=== PATIENT | male | born 1950 | race Caucasian/White ===

== ENCOUNTER → 2019-08-06 | Outpatient (CLI) | payer MEDICARE, OTHER ==
[~2019-08-06] MED LIST: ACHD5005 PO; ASPI-586 PO; CEFD300C3 PO; CHOL500044 PO; DOXY100T2 PO; LORA10TA7 PO; MULT-974 PO; OMG1KC PO; RANI-514 PO
[2019-08-06 07:47] LABS: CALCIUM 9.7 MG/DL (8.5-10.1); CREATININE SERUM 1.73 MG/DL (0.60-1.30); POTASSIUM 4.5 MMOL/L (3.6-5.0)
== END ==
LOC: LAB 07:20
PROVIDERS: ATTEND Family Medicine
DX: N28.9 Disorder of kidney and ureter, unspecified (principal)
CPT/HCPCS: 36415; 80048

== ENCOUNTER → 2019-08-19 | Outpatient (CLI) | payer MEDICARE, OTHER ==
[2019-08-19 07:49] LABS: CALCIUM 9.5 MG/DL (8.5-10.1); CREATININE SERUM 1.62 MG/DL (0.60-1.30); POTASSIUM 4.5 MMOL/L (3.6-5.0)
== END ==
LOC: LAB 07:14
PROVIDERS: ATTEND Family Medicine
DX: N28.9 Disorder of kidney and ureter, unspecified (principal)
CPT/HCPCS: 36415; 80048

== ENCOUNTER 2019-09-02 06:58 | Outpatient (RCR) | payer MEDICARE, OTHER ==
[~2019-09-02 06:58] MED LIST changes: -RANI-514 PO; +RANI-607 PO
[2019-09-02 07:27] LABS: CALCIUM 9.4 MG/DL (8.5-10.1); CREATININE SERUM 1.56 MG/DL (0.60-1.30); POTASSIUM 4.3 MMOL/L (3.6-5.0)
== END 2019-12-01 | disposition home or self-care (01) ==
LOC: LAB 06:58 → EDSTATUS 07:00
PROVIDERS: ATTEND Family Medicine
DX: N28.9 Disorder of kidney and ureter, unspecified (principal)
CPT/HCPCS: 36415; 80048

== ENCOUNTER → 2019-09-17 | Outpatient (CLI) | payer MEDICARE, OTHER ==
[~2019-09-17] MED LIST changes: +RANI-514 PO; -RANI-607 PO
[2019-09-17 07:46] LABS: CALCIUM 9.3 MG/DL (8.5-10.1); CREATININE SERUM 1.57 MG/DL (0.60-1.30); POTASSIUM 4.5 MMOL/L (3.6-5.0)
== END ==
LOC: LAB 06:55
PROVIDERS: ATTEND Family Medicine
DX: R94.4 Abnormal results of kidney function studies (principal)
CPT/HCPCS: 36415; 80048

== ENCOUNTER → 2019-09-30 | Outpatient (CLI) | payer MEDICARE, OTHER ==
[2019-09-30 07:51] LABS: CALCIUM 9.4 MG/DL (8.5-10.1); CREATININE SERUM 1.65 MG/DL (0.60-1.30); POTASSIUM 4.5 MMOL/L (3.6-5.0)
== END ==
LOC: LAB 07:28
PROVIDERS: ATTEND Family Medicine
DX: R94.4 Abnormal results of kidney function studies (principal)
CPT/HCPCS: 36415; 80048

== ENCOUNTER → 2019-10-07 | Outpatient (CLI) | payer MEDICARE, OTHER ==
--- NOTE | 2019-10-07 15:15 | Diagnostic Imaging Report ---
PROCEDURE: US Renal Bilateral. TECHNIQUE: Multiple real-time grayscale images were obtained over the kidneys in various projections bilaterally. INDICATION: Urinary retention. History of diabetes. COMPARISON: None. FINDINGS: Right: The right kidney measures 11.4 cm in length. Renal cortical thickness and echogenicity are within normal limits. There is no evidence of calculi, solid focal mass or hydronephrosis. No perinephric fluid collections are identified. Left: The left kidney measures 12.6 cm in length. Renal cortical thickness and echogenicity are within normal limits. There is moderate left-sided hydroureteronephrosis with dilation of the renal calyces. No evidence of obstructing renal calculi or suspicious renal mass is seen on the left. There is no abdominal ascites. Views of the pelvis demonstrate a markedly distended urinary bladder with a volume of 2430 mL. Both ureteral jets are visualized. No large intraluminal filling defect or calculi are identified. Numerous hepatic cysts are incidentally noted. IMPRESSION: 1. Moderate left-sided hydroureteronephrosis. No obstructing renal calculi are seen. The left ureteral jet is seen. 2. Moderately distended urinary bladder. Postvoid volumes were not obtained on this exam to evaluate for urinary retention. 3. Incidentally visualized numerous hepatic cysts. If indicated, further evaluation with liver protocol CT or MRI of the abdomen and pelvis may be considered. Dictated by: Dictated on workstation # [id number]
== END ==
LOC: RAD 12:59
PROVIDERS: ATTEND Family Medicine
DX: N13.30 Unspecified hydronephrosis (principal); E11.9 Type 2 diabetes mellitus without complications; N32.89 Other specified disorders of bladder; K76.89 Other specified diseases of liver; N28.9 Disorder of kidney and ureter, unspecified; R33.9 Retention of urine, unspecified
CPT/HCPCS: 76770

== ENCOUNTER 2019-10-08 08:59 | Emergency (ER) | payer MEDICARE, OTHER ==
[~2019-10-08] VITALS: Ht 187.9 cm; Wt 91.7 kg
[2019-10-08 09:35] LABS: BILIRUBIN,URINE NEGATIVE (NEGATIVE); CLARITY,URINE CLEAR; COLOR,URINE YELLOW; GLUCOSE, URINE (UA) NEGATIVE (NEGATIVE); KETONES,URINE NEGATIVE (NEGATIVE); LEUKOCYTE ESTERASE ,URINE NEGATIVE (NEGATIVE); NITRITE,URINE NEGATIVE (NEGATIVE); PROTEIN,URINE NEGATIVE (NEGATIVE)
[2019-10-08] MEDS ORDERED: LIDOCAINE UROJET 2% GEL 10 ML PKG ONE (09:35)
[2019-10-08 09:40] LABS: BASOPHILS % (AUTO) 0 % (0-10); EOSINOPHILS # (AUTO) 0.2 10^3/uL (0.0-0.3); EOSINOPHILS % (AUTO) 2 % (0-10); HEMATOCRIT 40 % (40-54); HEMOGLOBIN 13.8 G/DL (13.3-17.7); LYMPHOCYTES # (AUTO) 1.6 X 10^3 (1.0-4.0); LYMPHOCYTES % (AUTO) 25 % (12-44); MEAN CORPUSCULAR HEMOGLOBIN 34 PG (25-34); MEAN CORPUSCULAR HGB CONC 34 G/DL (32-36); MEAN CORPUSCULAR VOLUME 98 FL (80-99); MEAN PLATELET VOLUME 9.6 FL (7.4-10.4); MONOCYTES # (AUTO) 0.7 X 10^3 (0.0-1.0); MONOCYTES % (AUTO) 11 % (0-12); NEUTROPHILS # (AUTO) 3.9 X 10^3 (1.8-7.8); NEUTROPHILS % (AUTO) 62 % (42-75); PLATELET COUNT 159 10^3/uL (130-400); RED CELL DISTRIBUTION WIDTH 13.5 % (10.0-14.5); WHITE BLOOD COUNT 6.4 10^3/uL (4.3-11.0)
[2019-10-08 09:43] LABS: BACTERIA,URINE TRACE /HPF
[2019-10-08 09:59] LABS: ALBUMIN 4.3 GM/DL (3.2-4.5); BILIRUBIN,TOTAL 1.6 MG/DL (0.1-1.0); CALCIUM 9.5 MG/DL (8.5-10.1); CREATININE SERUM 1.66 MG/DL (0.60-1.30); POTASSIUM 4.5 MMOL/L (3.6-5.0)
--- NOTE | 2019-10-08 10:54 | Diagnostic Imaging Report ---
EXAMINATION: CT Abdomen Pelvis without contrast. TECHNIQUE: Multiple contiguous axial images were obtained through the abdomen and pelvis without the use of intravenous contrast. All CT scans use one or more of the following dose optimizing techniques: automated exposure control, MA and/or KvP adjustment based on a patient size and exam type, or iterative reconstruction. HISTORY: Hydronephrosis. COMPARISON: None available. FINDINGS: Limited views of the lower thorax are unremarkable. There are extensive cysts throughout the liver. Many of these are peripherally calcified. There is no biliary ductal dilation. Calcification in the region of the gallbladder fossa is indeterminate, either the gallbladder is filled with stones or a sequela of prior cholecystectomy, possibly a dropped stone. Pancreas is normal. Spleen is normal. Adrenal glands are normal. There is mild left hydronephrosis with transition at the ureteropelvic junction likely representing a ureteropelvic junction obstruction. No suspicious renal lesions are seen. No right-sided hydronephrosis. Urinary bladder is distended. A Story catheter is present. Prostate is enlarged. There are no dilated loops of large or small bowel. No obstruction or inflammation. No free fluid or air. No abdominal or pelvic lymphadenopathy. Aorta is normal in caliber without aneurysm. There are no suspicious osseous lesions. IMPRESSION: 1. Left-sided hydronephrosis is mild and likely related to ureteropelvic junction obstruction without stone seen. 2. Extensive polycystic liver disease. Dictated by: Dictated on workstation # [id number]
--- NOTE | 2019-10-08 10:58 | ED GU-Female ---
General Chief Complaint: - Urinary Stated Complaint: SENT BY DR ROTH FOR SONOGRAM Source: patient Exam Limitations: no limitations History of Present Illness Date Seen by Provider: Oct 08, 2019 Time Seen by Provider: 10:15 Initial Comments Here with report of bladder distention. Patient follows with Dr. Roth in Dr. Roth called me this morning related to this patient. Apparently he had ultrasound yesterday which showed significant bladder distention and hydronephrosis. Dr. Rvias was worried about urinary retention and asked that he be evaluated with post void residual and catheter if indicated. Also requested noncontrast CT scan. Patient arrives and is in no distress and has no complaints. He does report that he has had recent history of elevated creatinine that is new over the last several months. He does not feel fullness or pain in the abdomen. Timing/Duration: constant, yesterday Severity/Quality: mild Location: other (no pain) Radiation: none Activities at Onset: none Prior Genitourinary Problems: none Associated Symptoms: No abdominal pain, No dysuria, No fever/chills, No loss of bladder control, No lower back pain, No nausea/vomiting, No urinary frequency Allergies and Home Medications Allergies Coded Allergies: No Known Drug Allergies (Unverified , 05/06/18) Home Medications Cefdinir 300 Mg Capsule, 300 MG PO BID, (Reported) Cholecalciferol (Vitamin D3) 5,000 Unit Tablet, 5,000 UNIT PO DAILY, (Reported) Doxycycline Hyclate 100 Mg Tablet, 100 MG PO BID, (Reported) Hydrocodone Bit/Acetaminophen 1 Tab Tab, 1-2 TAB PO 4-6HR PRN for PAIN Prescribed by: ZEINA HERNANDEZ on 05/06/18 1158 Loratadine 10 Mg Tablet, 10 MG PO DAILY, (Reported) Ranitidine HCl 75 Mg Tablet, 75 MG PO DAILY, (Reported) Patient Home Medication List Home Medication List Reviewed: Yes Review of Systems Review of Systems Constitutional: see HPI Respiratory: no symptoms reported Cardiovascular: no symptoms reported Gastrointestinal: no symptoms reported Genitourinary: see HPI Musculoskeletal: no symptoms reported Skin: no symptoms reported All Other Systemes Reviewed Negative Unless Noted: Yes Past Aslisrc-Cdrmxq-Xqtnen Hx Past Med/Social Hx: Reviewed Nursing Past Med/Soc Hx Patient Social History Alcohol Use: Denies Use Recreational Drug Use: No Smoking Status: Never a Smoker Former Smoker, Quit: Nov 11, 1990 Recent Foreign Travel: No Contact w/Someone Who Travel: No Recent Hopitalizations: No Seasonal Allergies Seasonal Allergies: Yes Past Medical History Surgeries: Yes (sebaceous cyst on his back) Respiratory: No Cardiac: No Neurological: No Reproductive Disorders: No Endocrine: Yes Diabetes, Non-Insulin dep Psychosocial: No Recent Skin Changes Family Medical History Reviewed Nursing Family Hx No Pertinent Family Hx Physical Exam Vital Signs Vital Signs - First Documented 10/08/19 09:18 Temp 36.4 Pulse 79 Resp 15 B/P (MAP) 159/92 (114) Pulse Ox 99 O2 Delivery Room Air Capillary Refill : Height, Weight, BMI Height: 6'2.00" Weight: 224lbs. 8.0oz. 101.551730sr; 28.8 BMI Method: General Appearance: WD/WN, no apparent distress Neck: full range of motion, supple Cardiovascular: regular rate, rhythm, no murmur Respiratory: lungs clear, normal breath sounds Gastrointestinal: non tender, soft Back: normal inspection, no CVA tenderness, no vertebral tenderness Extremities: non-tender, normal inspection Neurologic/Psychiatric: alert, oriented x 3 Skin: normal color, warm/dry Progress/Results/Core Measures Suspected Sepsis SIRS Temperature: Pulse: Respiratory Rate: Laboratory Tests 10/08/19 09:34: White Blood Count 6.4 Blood Pressure / Mean: Laboratory Tests 10/08/19 09:34: Creatinine 1.66H, Platelet Count 159, Total Bilirubin 1.6H Results/Orders Lab Results Laboratory Tests Test 10/08/19 09:20 10/08/19 09:34 Range/Units Urine Color YELLOW Urine Clarity CLEAR Urine pH 5.0 5-9 Urine Specific [place] >=1.030 1.016-1.022 Urine Protein NEGATIVE NEGATIVE Urine Glucose (UA) NEGATIVE NEGATIVE Urine Ketones NEGATIVE NEGATIVE Urine Nitrite NEGATIVE NEGATIVE Urine Bilirubin NEGATIVE NEGATIVE Urine Urobilinogen 0.2 < = 1.0 MG/DL Urine Leukocyte Esterase NEGATIVE NEGATIVE Urine RBC (Auto) NEGATIVE NEGATIVE Urine RBC NONE /HPF Urine WBC NONE /HPF Urine Crystals NONE /LPF Urine Bacteria TRACE /HPF Urine Casts NONE /LPF Urine Mucus NEGATIVE /LPF Urine Culture Indicated NO White Blood Count 6.4 4.3-11.0 10^3/uL Red Blood Count 4.11 L 4.35-5.85 10^6/uL Hemoglobin 13.8 13.3-17.7 G/DL Hematocrit 40 40-54 % Mean Corpuscular Volume 98 80-99 FL Mean Corpuscular Hemoglobin 34 25-34 PG Mean Corpuscular Hemoglobin Concent 34 32-36 G/DL Red Cell Distribution Width 13.5 10.0-14.5 % Platelet Count 159 130-400 10^3/uL Mean Platelet Volume 9.6 7.4-10.4 FL Neutrophils (%) (Auto) 62 42-75 % Lymphocytes (%) (Auto) 25 12-44 % Monocytes (%) (Auto) 11 0-12 % Eosinophils (%) (Auto) 2 0-10 % Basophils (%) (Auto) 0 0-10 % Neutrophils # (Auto) 3.9 1.8-7.8 X 10^3 Lymphocytes # (Auto) 1.6 1.0-4.0 X 10^3 Monocytes # (Auto) 0.7 0.0-1.0 X 10^3 Eosinophils # (Auto) 0.2 0.0-0.3 10^3/uL Basophils # (Auto) 0.0 0.0-0.1 10^3/uL Sodium Level 142 135-145 MMOL/L Potassium Level 4.5 3.6-5.0 MMOL/L Chloride Level 108 H 98-107 MMOL/L Carbon Dioxide Level 23 21-32 MMOL/L Anion Gap 11 5-14 MMOL/L Blood Urea Nitrogen 33 H 7-18 MG/DL Creatinine 1.66 H 0.60-1.30 MG/DL Estimat Glomerular Filtration Rate 42 BUN/Creatinine Ratio 20 Glucose Level 116 H 70-105 MG/DL Calcium Level 9.5 8.5-10.1 MG/DL Corrected Calcium 9.3 8.5-10.1 MG/DL Total Bilirubin 1.6 H 0.1-1.0 MG/DL Aspartate Amino Transf (AST/SGOT) 32 5-34 U/L Alanine Aminotransferase (ALT/SGPT) 28 0-55 U/L Alkaline Phosphatase 51 40-136 U/L Total Protein 7.0 6.4-8.2 GM/DL Albumin 4.3 3.2-4.5 GM/DL My Orders Orders - DEANGELO ABEBE MD Ed Iv/Invasive Line Start (10/08/19 09:25) Cbc With Automated Diff (10/08/19 09:25) Comprehensive Metabolic Panel (10/08/19 09:25) Ua Culture If Indicated (10/08/19 09:25) Ct Abdomen/Pelvis Wo (10/08/19 09:25) Lidocaine 2% (Urojet) (Xylocaine Urojet) (10/08/19 09:35) Medications Given in ED Current Medications Medications Dose Ordered Sig/Alyssa Route Start Time Stop Time Status Last Admin Dose Admin Lidocaine HCl 10 ml STK-MED ONCE .ROUTE 10/08/19 09:35 10/08/19 09:38 DC 10/08/19 09:45 10 ML Vital Signs/I&O 10/08/19 09:18 Temp 36.4 Pulse 79 Resp 15 B/P (MAP) 159/92 (114) Pulse Ox 99 O2 Delivery Room Air Capillary Refill : Progress Note : Progress Note Seen and evaluated. Patient was instructed to avoid. Postvoid residual was greater than 999 indicating fluid volume greater than maximum allowable on scanning. Story catheter placed by nursing and had immediate 1000 output. This was clamped. Labs and UA ordered. Catheter was unclamped and another 900 output obtained and read clamped. 1045: Clamp is open to drain final amount. CT scan is ordered and is pending. UA and labs reviewed and showed no significant findings. Patient has known liver cyst from the ultrasound and CT does show this. He will need further imaging either with MRI or contrast scan when able. This will be passed onto Dr. Roth. Monitor patient. Diagnostic Imaging Diagonstic Imaging: CT Plain Films/CT/US/NM/MRI: abdomen, pelvis Comments [facility]. POS [place], [place] POS NAME: MARLYS DUBON [facility] REC#: [id number] PT STATUS: REG ER : 1950 PHYSICIAN: DEANGELO ABEBE MD ADMIT DATE: 10/08/19/ER Draft POSDate of Exam:10/08/19 CT ABDOMEN/PELVIS WO EXAMINATION: CT Abdomen Pelvis without contrast. TECHNIQUE: Multiple contiguous axial images were obtained through the abdomen and pelvis without the use of intravenous contrast. All CT scans use one or more of the following dose optimizing techniques: automated exposure control, MA and/or KvP adjustment based on a patient size and exam type, or iterative reconstruction. HISTORY: Hydronephrosis. COMPARISON: None available. FINDINGS: Limited views of the lower thorax are unremarkable. There are extensive cysts throughout the liver. Many of these are peripherally calcified. There is no biliary ductal dilation. Calcification in the region of the gallbladder fossa is indeterminate, either the gallbladder is filled with stones or a sequela of prior cholecystectomy, possibly a dropped stone. Pancreas is normal. Spleen is normal. Adrenal glands are normal. There is mild left hydronephrosis with transition at the ureteropelvic junction likely representing a ureteropelvic junction obstruction. No suspicious renal lesions are seen. No right-sided hydronephrosis. Urinary bladder is distended. A Story catheter is present. Prostate is enlarged. There are no dilated loops of large or small bowel. No obstruction or inflammation. No free fluid or air. No abdominal or pelvic lymphadenopathy. Aorta is normal in caliber without aneurysm. There are no suspicious osseous lesions. IMPRESSION: 1. Left-sided hydronephrosis is mild and likely related to ureteropelvic junction obstruction without stone seen. 2. Extensive polycystic liver disease. Dictated on workstation # [id number] Dict: 10/08/19 1035 Trans: 10/08/19 1116 [facility] [id number] Interpreted by: MARLYS BLAKE MD Electronically signed by: Departure Impression Primary Impression: Urinary retention Additional Impressions: Chronic renal failure Qualified Codes: N18.9 - Chronic kidney disease, unspecified Hepatic cyst Disposition: HOME, SELF-CARE Condition: Improved Departure-Patient Inst. Decision time for Depature: 11:01 Referrals: DONALDO ROTH DO (PCP/Family) Primary Care Physician Patient Instructions: Urinary Retention (DC), Story Catheter, Male Add. Discharge Instructions: All discharge instructions reviewed with patient and/or family. Voiced understanding. Follow-up with Dr. Roth on Saturday for recheck and further evaluation. You may need further evaluation both for your liver and for your kidneys. Return for worse pain, fever, vomiting, weakness, breathing problems or other concerns as needed. Copy Copies To 1: DONALDO ROTH TIMOTHY D MD Oct 08, 2019 10:58 POS
--- NOTE | 2019-10-08 12:00 | NUR ---
Pt sent home with leg bag and catheter in place.
[2019-10-08 12:02] VITALS: BP 159/92
== END 2019-10-08 12:02 | disposition home or self-care (01) ==
LOC: EDUNIT# 08:59 → ER 09:00
DX: R33.9 Retention of urine, unspecified (principal); K76.89 Other specified diseases of liver; N18.9 Chronic kidney disease, unspecified; E11.22 Type 2 diabetes mellitus with diabetic chronic kidney disease; Z87.891 Personal history of nicotine dependence
CPT/HCPCS: 36415; 51702; 74176; 80053; 81000; 85025

== ENCOUNTER → 2019-10-12 | Outpatient (CLI) | payer MEDICARE, OTHER ==
[2019-10-12 11:15] LABS: BILIRUBIN,URINE NEGATIVE (NEGATIVE); CLARITY,URINE CLEAR; COLOR,URINE YELLOW; GLUCOSE, URINE (UA) NEGATIVE (NEGATIVE); KETONES,URINE NEGATIVE (NEGATIVE); LEUKOCYTE ESTERASE ,URINE NEGATIVE (NEGATIVE); NITRITE,URINE NEGATIVE (NEGATIVE); PH,URINE 5.5 (5-9); PROTEIN,URINE NEGATIVE (NEGATIVE)
[2019-10-12 11:27] LABS: CALCIUM 9.4 MG/DL (8.5-10.1); CREATININE SERUM 1.47 MG/DL (0.60-1.30); POTASSIUM 4.4 MMOL/L (3.6-5.0)
[2019-10-12 11:27] LABS: BACTERIA,URINE NEGATIVE /HPF; RBC,URINE 25-50 /HPF; SQUAMOUS EPITHELIAL CELL,UR RARE /HPF; WBC,URINE RARE /HPF
[2019-10-12 11:28] LABS: AMORPHOUS SEDIMENT,UR MOD AMOR URATES /LPF
== END ==
LOC: LAB 11:01
PROVIDERS: ATTEND Family Medicine
DX: N13.9 Obstructive and reflux uropathy, unspecified (principal); N28.9 Disorder of kidney and ureter, unspecified
CPT/HCPCS: 36415; 80048; 81000

== ENCOUNTER → 2019-11-14 | Outpatient (CLI) | payer MEDICARE, OTHER ==
[2019-11-14 08:21] LABS: CALCIUM 9.3 MG/DL (8.5-10.1); CREATININE SERUM 1.54 MG/DL (0.60-1.30); POTASSIUM 4.4 MMOL/L (3.6-5.0)
== END ==
LOC: LAB 07:42
PROVIDERS: ATTEND Family Medicine
DX: N28.9 Disorder of kidney and ureter, unspecified (principal)
CPT/HCPCS: 36415; 80048; 84153

== ENCOUNTER 2019-12-05 21:35 | Emergency (ER) | payer MEDICARE, OTHER ==
[~2019-12-05] VITALS: Ht 188 cm; Wt 88.6 kg
[~2019-12-05 21:35] MED LIST changes: -RANI-514 PO; +RANI-607 PO
[2019-12-05] MEDS ORDERED: MULT1CAP27 PO (21:49)
[2019-12-05] MEDS ORDERED: CHOL500050 PO (21:49)
[2019-12-05] MEDS ORDERED: CYAN250010 PO (21:49)
[2019-12-05] MEDS ORDERED: NFBIOT1000 PO (21:49)
[2019-12-05 22:26] LABS: BASOPHILS % (AUTO) 1 % (0-10); EOSINOPHILS # (AUTO) 0.2 10^3/uL (0.0-0.3); EOSINOPHILS % (AUTO) 3 % (0-10); HEMATOCRIT 38 % (40-54); LYMPHOCYTES % (AUTO) 26 % (12-44); MEAN CORPUSCULAR HEMOGLOBIN 34 PG (25-34); MEAN CORPUSCULAR HGB CONC 35 G/DL (32-36); MEAN CORPUSCULAR VOLUME 97 FL (80-99); MONOCYTES # (AUTO) 0.8 X 10^3 (0.0-1.0); MONOCYTES % (AUTO) 11 % (0-12); NEUTROPHILS # (AUTO) 4.4 X 10^3 (1.8-7.8); NEUTROPHILS % (AUTO) 59 % (42-75); PLATELET COUNT 158 10^3/uL (130-400); RED CELL DISTRIBUTION WIDTH 12.8 % (10.0-14.5); WHITE BLOOD COUNT 7.4 10^3/uL (4.3-11.0)
[2019-12-05] MEDS ORDERED: diphenhydrAMINE 50 MG/ML INJ (BENADRYL) IVP ONE (22:30)
[2019-12-05 22:37] LABS: PROTHROMBIN TIME PATIENT 13.6 SEC (12.2-14.7)
[2019-12-05 22:44] LABS: ALBUMIN 4.1 GM/DL (3.2-4.5); BILIRUBIN,TOTAL 1.1 MG/DL (0.1-1.0); CALCIUM 9.4 MG/DL (8.5-10.1); CREATININE SERUM 1.57 MG/DL (0.60-1.30); MAGNESIUM 2.2 MG/DL (1.6-2.4); POTASSIUM 4.2 MMOL/L (3.6-5.0)
--- NOTE | 2019-12-05 23:00 | ED General ---
General Chief Complaint: General Problems/Pain Stated Complaint: MEDICATION REACTION Nursing Triage Note: patient reports 'swooshing' in his ears, lightheadedness and dizziness when getting up. patient reports that this started on the of the month Nursing Sepsis Screen: No Definite Risk Source of Information: Patient History of Present Illness Date Seen by Provider: Dec 05, 2019 Time Seen by Provider: 21:43 Initial Comments PT ARRIVES VIA POV FROM HOME STATES THAT HE HAS HAD A "SWISHING" SOUND IN THE BACK OF HIS HEAD SINCE 11/26/19--POINTS TO BILATERAL OCCIPITAL AREA, THE AREAS THAT HE "HEARS" THE "SWISHING" SOUNDS NO DIZZINESS NO HEADACHE NO EAR PAIN NO RECENT FEVER OR ILLNESS NO URI/SINUS SYMPTOMS NO ACTUAL DECREASE IN HEARING NO CHEST PAIN NO SHORTNESS OF BREATH NO PALPITATIONS NO NECK PAIN NO PARESTHESIAS OR MOTOR DEFICITS NO PROBLEMS WITH BALANCE NO INJURY TO HEAD OR NECK STATES THIS "SWISHING SOUND" IS THERE "80% OF THE TIME" STATES IT ALL GOES AWAY COMPLETELY IF HE BENDS HIS BODY FORWARD 90 DEGREES, IF HE EXTENDS HIS NECK BACKWARDS, OR IF HE PRESSES DIRECTLY ON THE 2 AREAS ON THE BACK OF HIS HEAD THAT THE NOISES ARE COMING FROM NOTHING WORSENS THE SYMPTOMS. STATES HE WAS STARTED ON AFLUZOSIN ON 11/20/19 FOR PROSTATE PROBLEMS, BUT SELF DC'D IT ON 11/26/19 BECAUSE "IT MADE MY BLOOD PRESSURE DROP TO 90/40 AND I GOT LIGHT HEADED" --HAS NOT HAD THOSE SYMPTOMS SINCE THEN STATES SYMPTOMS ARE NOT SEVERE THEY HAVE BEEN, BUT THEN AROUND 1300 TODAY IT GOT A LITTLE WORSE, SO TOOK IBUPROFEN AT 1400 AND IT WENT AWAY ( WAS NOT HAVING ANY PAIN, SO IS UNCLEAR WHY HE TOOK IBUPROFEN) STATES HE WAS EXERCISING AT 1900, AND THEN SYMPTOMS STARTED UP AGAIN AROUND 1999, SO CAME HERE HAS NOT SOUGHT CARE UNTIL TONIGHT AND IS NOT ACTUALLY ANY DIFFERENT IN ANY WAY TONIGHT. PT CHECKS HIS BLOOD PRESSURE MULTIPLE TIMES EVERY DAY--FROM 3 TO 7 TIMES A DAY, EVERY DAY STATES HIS BLOOD PRESSURES WERE 154/70 WITH EXERCISE, AND 141/72 IMMEDIATELY AFTERWARD, WHICH IS COMPLETELY NORMAL FOR HIM PCP: DR. ROTH Allergies and Home Medications Allergies Coded Allergies: No Known Drug Allergies (Unverified , 05/06/18) Home Medications Biotin 1,000 Mcg Tablet, 1,000 MCG PO DAILY, (Reported) Loratadine 10 Mg Tablet, 10 MG PO DAILY, (Reported) Patient Home Medication List Home Medication List Reviewed: Yes Review of Systems Review of Systems Constitutional: no symptoms reported; No chills, No diaphoresis, No dizziness, No fever, No malaise, No weakness EENTM: see HPI; No ear discharge, No hearing loss, No ear pain, No blurred vision, No double vision, No nose congestion Respiratory: no symptoms reported; No cough, No short of breath Cardiovascular: no symptoms reported; No chest pain, No palpitations, No syncope Gastrointestinal: no symptoms reported; No nausea, No vomiting Genitourinary: other (CHRONIC PROBLEMS WITH PROSTATE--SELF CATH'S ) Musculoskeletal: no symptoms reported; No back pain, No neck pain Skin: no symptoms reported Psychiatric/Neurological: See HPI; Denies Anxiety, Denies Depressed, Denies Emotional Problems, Denies Headache, Denies Numbness, Denies Paresthesia, Denies Seizure, Denies Tingling, Denies Tremors, Denies Weakness Hematologic/Lymphatic: No Symptoms Reported Immunological/Allergic: no symptoms reported Past Ggfkwib-Oomcdi-Uoiqbn Hx Past Med/Social Hx: Reviewed and Corrections made Patient Social History Alcohol Use: Denies Use Recreational Drug Use: No Smoking Status: Former Smoker Type Used: Cigarettes Former Smoker, Quit: Nov 11, 1990 Recent Foreign Travel: No Contact w/Someone Who Travel: No Recent Infectious Disease Expo: No Recent Hopitalizations: No Seasonal Allergies Seasonal Allergies: Yes Past Medical History Surgeries: Yes (SEBACEOUS CYST REMOVED FROM BACK) Respiratory: No Cardiac: Yes Hypertension 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) Neuropathy Reproductive Disorders: No Genitourinary: Yes (OBSTRUCTIVE UROPATHY ; CHRONIC RENAL FAILURE/INSUFFICIENCY; SELF-CATH'S) Benign Prostatic Hyperpl, Bladder Infection Gastrointestinal: No Musculoskeletal: Yes (HAD INJECTION L3-4 APPROX 2007 FOR SCIATIC PAIN) Endocrine: Yes Diabetes, Non-Insulin dep HEENT: No Cancer: No Psychosocial: No Integumentary: Yes (INFECTED SEBACEOUS CYST REMOVED) Blood Disorders: No Family Medical History No Pertinent Family Hx Physical Exam Vital Signs Vital Signs - First Documented 12/05/19 21:43 Temp 35.4 Pulse 74 Resp 18 B/P (MAP) 154/88 (110) Pulse Ox 99 Capillary Refill : Less Than 3 Seconds Height, Weight, BMI Height: 6'2.00" Weight: 224lbs. 8.0oz. 101.785040zq; 25.00 BMI Method: General Appearance: No Apparent Distress, WD/WN HEENT: PERRL/EOMI, TMs Normal, Normal ENT Inspection, Pharynx Normal, Moist Mucous Membranes, Other (SMALL EAR CANALS. NO TENDERNESS OR SWELLING NOTED TO EARS ) Neck: Full Range of Motion, Normal Inspection, Non Tender, Supple; No Carotid Bruit, No JVD Respiratory: Normal Breath Sounds, No Accessory Muscle Use, No Respiratory Distress Cardiovascular: Regular Rate, Rhythm, No Edema, No JVD, No Murmur, Normal Peripheral Pulses Gastrointestinal: Normal Bowel Sounds, No Organomegaly, No Pulsatile Mass, Non Tender, Soft Back: Normal Inspection, No CVA Tenderness, No Vertebral Tenderness Extremity: Normal Capillary Refill, Normal Inspection, Normal Range of Motion, Non Tender, No Calf Tenderness, No Pedal Edema Neurologic/Psychiatric: Alert, Oriented x3, No Motor/Sensory Deficits, Normal 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, 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 Norm as Tested; No Abnormal Cerebellar Tests Skin: Normal Color, Warm/Dry Progress/Results/Core Measures Suspected Sepsis Recent Fever Within 48 Hours: No Infection Criteria Present: None New/Unexplained Altered Menta: No Sepsis Screen: No Definite Risk SIRS Temperature: Pulse: 74 Respiratory Rate: 18 Laboratory Tests 12/05/19 22:12: White Blood Count 7.4 Blood Pressure 154 /88 Mean: 110 Laboratory Tests 12/05/19 22:12: Creatinine 1.57H, INR Comment 1.0, Platelet Count 158, Total Bilirubin 1.1H Results/Orders Lab Results Laboratory Tests Test 12/05/19 22:12 Range/Units White Blood Count 7.4 4.3-11.0 10^3/uL Red Blood Count 3.88 L 4.35-5.85 10^6/uL Hemoglobin 13.0 L 13.3-17.7 G/DL Hematocrit 38 L 40-54 % Mean Corpuscular Volume 97 80-99 FL Mean Corpuscular Hemoglobin 34 25-34 PG Mean Corpuscular Hemoglobin Concent 35 32-36 G/DL Red Cell Distribution Width 12.8 10.0-14.5 % Platelet Count 158 130-400 10^3/uL Mean Platelet Volume 10.0 7.4-10.4 FL Neutrophils (%) (Auto) 59 42-75 % Lymphocytes (%) (Auto) 26 12-44 % Monocytes (%) (Auto) 11 0-12 % Eosinophils (%) (Auto) 3 0-10 % Basophils (%) (Auto) 1 0-10 % Neutrophils # (Auto) 4.4 1.8-7.8 X 10^3 Lymphocytes # (Auto) 2.0 1.0-4.0 X 10^3 Monocytes # (Auto) 0.8 0.0-1.0 X 10^3 Eosinophils # (Auto) 0.2 0.0-0.3 10^3/uL Basophils # (Auto) 0.0 0.0-0.1 10^3/uL Prothrombin Time 13.6 12.2-14.7 SEC INR Comment 1.0 0.8-1.4 Activated Partial Thromboplast Time 33 24-35 SEC Sodium Level 138 135-145 MMOL/L Potassium Level 4.2 3.6-5.0 MMOL/L Chloride Level 107 98-107 MMOL/L Carbon Dioxide Level 19 L 21-32 MMOL/L Anion Gap 12 5-14 MMOL/L Blood Urea Nitrogen 42 H 7-18 MG/DL Creatinine 1.57 H 0.60-1.30 MG/DL Estimat Glomerular Filtration Rate 44 BUN/Creatinine Ratio 27 Glucose Level 104 70-105 MG/DL Calcium Level 9.4 8.5-10.1 MG/DL Corrected Calcium 9.3 8.5-10.1 MG/DL Magnesium Level 2.2 1.6-2.4 MG/DL Total Bilirubin 1.1 H 0.1-1.0 MG/DL Aspartate Amino Transf (AST/SGOT) 40 H 5-34 U/L Alanine Aminotransferase (ALT/SGPT) 29 0-55 U/L Alkaline Phosphatase 62 40-136 U/L Total Protein 7.0 6.4-8.2 GM/DL Albumin 4.1 3.2-4.5 GM/DL My Orders Orders - YANY EDWARDS DO Ed Iv/Invasive Line Start (12/05/19 21:58) Ekg Tracing (12/05/19 21:58) Monitor-Rhythm Ecg Trace Only (12/05/19 21:58) Ct Head Wo-R/O Stroke (12/05/19 21:58) Cbc With Automated Diff (12/05/19 21:58) Comprehensive Metabolic Panel (12/05/19 21:58) Magnesium (12/05/19 21:58) Protime With Inr (12/05/19 21:58) Partial Thromboplastin Time (12/05/19 21:58) Diphenhydramine Injection (Benadryl Inje (12/05/19 22:30) Vital Signs/I&O 12/05/19 12/05/19 21:43 23:04 Temp 35.4 35.4 Pulse 74 74 Resp 18 18 B/P (MAP) 154/88 (110) 154/88 (110) Pulse Ox 99 99 Capillary Refill : Less Than 3 Seconds Blood Pressure Mean: 110 Progress Note : Progress Note UNEVENTFUL ER STAY AT DISMISSAL, PT STATES THAT HE HAS SEEN DR. HUNT IN THE PAST TO GET HIS EARS CLEANED OUT. PT STATES HE IS JUST GOING TO FOLLOW UP WITH HIM INSTEAD OF DR. ROTH. ECG Initial ECG Impression Date: Dec 05, 2019 Initial ECG Impression Time: 22:11 Initial ECG Rate: 69 Initial ECG Rhythm: Normal Sinus Diagnostic Imaging Comments CT HEAD--NO ACUTE PROCESS, PER [facility] RADIOLOGIST VIA PHONE AT [phone] AND THEN VIA FAX AT [phone] Reviewed: Reviewed by Me, Discussed w/Radiologist Departure Impression Primary Impression: ABNORMAL SOUNDS IN HEAD Additional Impression: QUESTIONABLE TINNITUS Disposition: 01 HOME, SELF-CARE Condition: Stable Departure-Patient Inst. Referrals: DONALDO ROTH DO (PCP/Family) Primary Care Physician Patient Instructions: NO INSTRUCTIONS GIVEN Add. Discharge Instructions: CONTINUE YOUR REGULAR MEDICATIONS PRESCRIBED FOLLOW UP WITH DR. ROTH IN 2-3 DAYS FOR FURTHER CARE, RETURN TO ER IF WORSE All discharge instructions reviewed with patient and/or family. Voiced understanding. YANY EDWARDS DO Dec 05, 2019 23:00
[2019-12-05 23:04] VITALS: BP 154/88
--- NOTE | 2019-12-06 06:27 | Diagnostic Imaging Report ---
PROCEDURE: CT head wo r/o stroke. TECHNIQUE: Multiple contiguous axial images were obtained through the brain without the use of intravenous contrast. Auto Exposure Controls were utilized during the CT exam to meet ALARA standards for radiation dose reduction. INDICATION: Lightheadedness and dizziness. FINDINGS: The ventricles and sulci are within normal limits. There is no hydrocephalus or cerebral edema. There is no midline shift or mass effect. There is no intracranial mass, hemorrhage, or extra-axial fluid collection. The visualized paranasal sinuses and mastoid air cells are clear. There are no regional areas of decreased attenuation appreciated to suggest an acute CVA. IMPRESSION: No acute intracranial abnormality. Dictated by: Dictated on workstation # [id number]
== END 2019-12-05 23:19 | disposition home or self-care (01) ==
LOC: EDUNIT# 21:35 → ER 21:37
DX: H93.293 Other abnormal auditory perceptions, bilateral (principal); E11.22 Type 2 diabetes mellitus with diabetic chronic kidney disease; I12.9 Hypertensive chronic kidney disease with stage 1 through stage 4 chronic kidney disease, or unspecified chronic kidney disease; N18.9 Chronic kidney disease, unspecified; E11.42 Type 2 diabetes mellitus with diabetic polyneuropathy; Z87.891 Personal history of nicotine dependence
CPT/HCPCS: 36415; 70450; 80053; 83735; 85025; 85610; 85730; 93005

== ENCOUNTER 2022-05-05 10:19 | Emergency (ER) | payer MEDICARE, OTHER ==
[~2022-05-05] VITALS: Ht 187 cm; Wt 90.7 kg
[~2022-05-05 10:19] MED LIST changes: +CHOL500050 PO; +CYAN250010 PO; +MULT1CAP27 PO; +NFBIOT1000 PO
[2022-05-05 10:45] LABS: BILIRUBIN,URINE NEGATIVE (NEGATIVE); CLARITY,URINE CLEAR; COLOR,URINE YELLOW; GLUCOSE, URINE (UA) NEGATIVE (NEGATIVE); KETONES,URINE TRACE (NEGATIVE); LEUKOCYTE ESTERASE ,URINE 1+ (NEGATIVE); NITRITE,URINE NEGATIVE (NEGATIVE); PH,URINE 5.5 (5-9); PROTEIN,URINE NEGATIVE (NEGATIVE)
[2022-05-05] MEDS ORDERED: NS IV 1000 ML 1,000 ML IV SCH ×2 (10:45)
[2022-05-05] MEDS ORDERED: CEFEPIME INJECTION 1,000 MG in NS (IVPB) 50 ML IV ONE (10:45)
[2022-05-05 10:54] LABS: EOSINOPHILS % (AUTO) 0 % (0-10); HEMOGLOBIN 11.7 g/dL (13.3-17.7); MEAN CORPUSCULAR HEMOGLOBIN 34 pg (25-34); MONOCYTES % (AUTO) 13 % (0-12)
[2022-05-05 10:56] LABS: BASOPHILS % (AUTO) 0 % (0-10); HEMATOCRIT 34 % (40-54); LYMPHOCYTES # (AUTO) 0.7 10^3/uL (1.0-4.0); LYMPHOCYTES % (AUTO) 7 % (12-44); MEAN CORPUSCULAR HGB CONC 35 g/dL (32-36); MEAN CORPUSCULAR VOLUME 99 fL (80-99); MEAN PLATELET VOLUME 10.1 fL (9.0-12.2); MONOCYTES # (AUTO) 1.4 10^3/uL (0.0-1.0); NEUTROPHILS # (AUTO) 8.5 10^3/uL (1.8-7.8); NEUTROPHILS % (AUTO) 80 % (42-75); PLATELET COUNT 128 10^3/uL (130-400); WHITE BLOOD COUNT 10.7 10^3/uL (4.3-11.0)
[2022-05-05 10:58] LABS: BACTERIA,URINE MODERATE /HPF; RBC,URINE 0-2 /HPF
[2022-05-05 11:03] LABS: ALBUMIN 3.7 GM/DL (3.2-4.5); POTASSIUM 3.9 MMOL/L (3.6-5.0)
[2022-05-05 11:05] LABS: INR 1.1 (0.8-1.4); PROTHROMBIN TIME PATIENT 15.1 SEC (12.2-14.7)
[2022-05-05 11:06] LABS: TOTAL PROTEIN 6.9 GM/DL (6.4-8.2)
--- NOTE | 2022-05-05 11:06 | Diagnostic Imaging Report ---
INDICATION: Sepsis. COMPARISON: None available. FINDINGS: The lungs appear clear without focal airspace opacities or consolidation. There are no findings of an effusion. There is no evidence of a pneumothorax. Heart size and mediastinal contours appear appropriate. Pulmonary vascularity appears within normal limits. There is no acute or suspicious osseous abnormality demonstrated. IMPRESSION: No radiographic evidence of an acute cardiopulmonary process. Dictated by: Dictated on workstation # [id number]
[2022-05-05 11:08] LABS: BILIRUBIN,TOTAL 1.4 MG/DL (0.1-1.0)
[2022-05-05 11:09] LABS: CREATININE SERUM 1.49 MG/DL (0.60-1.30)
[2022-05-05 11:15] LABS: LYMPHOCYTES % (MANUAL) 5 %; MONOCYTES % (MANUAL) 11 %; NEUTROPHILS % (MANUAL) 84 %; RBC MORPH NORMAL
[2022-05-05] MEDS ORDERED: CEFD300C3 PO (12:05)
--- NOTE | 2022-05-05 12:05 | ED GU-Male ---
General Chief Complaint: - Reproductive Stated Complaint: EXCESSIVE URINATION, Nursing Triage Note: PT PRESENTS TO ED VIA POV FROM HOME WITH COMPLAINTS OF FATIGUE SINCE SATURDAY. PT REPORTS INCREASED URINATION VIA SELF CATH OVER THE LAST COUPLE DAYS AND LOW GRADE FEVER STARTING TODAY. Source: patient, RN/MD (Dr. Roth) Exam Limitations: no limitations History of Present Illness Date Seen by Provider: May 05, 2022 Time Seen by Provider: 10:43 Initial Comments The patient presents the ER by private conveyance from Dr. Sargent's office with concern of sepsis UTI. He has been self cathing for many years due to prostatism. He does not take any medications routinely. He controls his diabetes by exercise and diet and has an A1c of 5 something. He had a fever 100.8 but has not taken any antipyretics. He is not have any significant pain he just has noticed since Saturday that he has had increased urine frequency and malaise and weakness. He is still active, working in the yard and just feels like he hits a wall sooner. Allergies and Home Medications Allergies Coded Allergies: No Known Drug Allergies (Unverified , 05/06/18) Patient Home Medication List Home Medication List Reviewed: Yes Biotin (Biotin) 1,000 Mcg Tablet, 1,000 MCG PO DAILY, (Reported) Entered as Reported by: LISA MOJICA on 12/05/192148 Cefdinir (Cefdinir) 300 Mg Capsule, 300 MG PO BID Prescribed by: SHANNON HERNANDEZ on 05/05/22 1205 Cholecalciferol (Vitamin D3) (Vitamin D) 5,000 Unit Capsule, 5,000 UNIT PO, (Reported) Entered as Reported by: LISA MOJICA on 12/05/192148 Cyanocobalamin (Vitamin B-12) (Vitamin B12) 2,500 Mcg Tablet, 2,500 MCG PO, (Reported) Entered as Reported by: LISA MOJICA on 12/05/192148 Loratadine (Loratadine) 10 Mg Tablet, 10 MG PO DAILY, (Reported) Entered as Reported by: CANDE GARCÍA on 05/06/18 1041 Multivitamin (Multivitamins) 1 Each Capsule, 1 EACH PO, (Reported) Entered as Reported by: LISA MOJICA on 12/05/192148 Review of Systems Review of Systems Constitutional: chills, fever, malaise EENTM: No ear discharge, No ear pain Respiratory: No cough, No short of breath Cardiovascular: No chest pain, No edema Gastrointestinal: No abdominal pain, No constipation, No diarrhea, No nausea Genitourinary: see HPI, dysuria, frequency; denies hematuria Musculoskeletal: No back pain, No joint pain All Other Systemes Reviewed Negative Unless Noted: Yes Past [id number]-Nxkatg Hx Patient Social History Tobacco Use?: No Substance use?: No Alcohol Use?: No Pt feels they are or have been: No Immunizations Up To Date First/Initial COVID19 Vaccinat: MODERNA Second COVID19 Vaccination Jerry: JUDY Seasonal Allergies Seasonal Allergies: Yes Past Medical History Surgery/Hospitalization HX: PMH: 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, DM CONTROLLED WITH DIET Surgeries: Yes (SEBACEOUS CYST REMOVED FROM BACK) Respiratory: No Cardiac: Yes Hypertension 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) Neuropathy Reproductive Disorders: No Genitourinary: Yes (OBSTRUCTIVE UROPATHY ; CHRONIC RENAL FAILURE/INSUFFICIENCY; SELF-CATH'S) Benign Prostatic Hyperpl, Bladder Infection Gastrointestinal: No Musculoskeletal: Yes (HAD INJECTION L3-4 APPROX 2007 FOR SCIATIC PAIN) Endocrine: Yes Diabetes, Non-Insulin dep HEENT: No Cancer: No Psychosocial: No Integumentary: Yes (INFECTED SEBACEOUS CYST REMOVED) Blood Disorders: No Family Medical History No Pertinent Family Hx Physical Exam Vital Signs Vital Signs - First Documented 05/05/22 10:40 Temp 37.1 Pulse 80 Resp 18 B/P (MAP) 142/87 (105) Pulse Ox 96 Capillary Refill : Less Than 3 Seconds Height, Weight, BMI Height: 6'2.00" Weight: 224lbs. 8.0oz. [id number]; 25.00 BMI Method: General Appearance: WD/WN, no apparent distress HEENT: PERRL/EOMI, pharynx normal Neck: full range of motion, supple, normal inspection Cardiovascular: normal peripheral pulses, regular rate, rhythm Respiratory: lungs clear, normal breath sounds, no respiratory distress, no accessory muscle use Gastrointestinal: normal bowel sounds, non tender, soft Extremities: normal range of motion, non-tender, normal capillary refill Neurologic/Psychiatric: alert, normal mood/affect, oriented x 3 Skin: normal color, warm/dry Focused Exam Lactate Level 05/05/22 10:43: Lactic Acid Level 0.67 Lactic Acid Level Laboratory Tests Test 05/05/22 10:43 Lactic Acid Level 0.67 MMOL/L (0.50-2.00) Progress/Results/Core Measures Suspected Sepsis SIRS Temperature: Pulse: 80 Respiratory Rate: 18 Laboratory Tests 05/05/22 10:43: White Blood Count 10.7 Blood Pressure 142 /87 Mean: 105 05/05/22 10:43: Lactic Acid Level 0.67 Laboratory Tests 05/05/22 10:43: Creatinine 1.49H, INR Comment 1.1, Platelet Count 128L, Total Bilirubin 1.4H Results/Orders Lab Results Laboratory Tests Test 05/05/22 10:39 05/05/22 10:43 Range/Units Urine Color YELLOW Urine Clarity CLEAR Urine pH 5.5 5-9 Urine Specific Lambert 1.020 1.016-1.022 Urine Protein NEGATIVE NEGATIVE Urine Glucose (UA) NEGATIVE NEGATIVE Urine Ketones TRACE H NEGATIVE Urine Nitrite NEGATIVE NEGATIVE Urine Bilirubin NEGATIVE NEGATIVE Urine Urobilinogen 0.2 < = 1.0 MG/DL Urine Leukocyte Esterase 1+ H NEGATIVE Urine RBC (Auto) NEGATIVE NEGATIVE Urine RBC 0-2 /HPF Urine WBC 5-10 H /HPF Urine Crystals NONE /LPF Urine Bacteria MODERATE H /HPF Urine Casts NONE /LPF Urine Mucus NEGATIVE /LPF Urine Culture Indicated CULTURE PENDING White Blood Count 10.7 4.3-11.0 10^3/uL Red Blood Count 3.42 L 4.30-5.52 10^6/uL Hemoglobin 11.7 L 13.3-17.7 g/dL Hematocrit 34 L 40-54 % Mean Corpuscular Volume 99 80-99 fL Mean Corpuscular Hemoglobin 34 25-34 pg Mean Corpuscular Hemoglobin Concent 35 32-36 g/dL Red Cell Distribution Width 12.7 10.0-14.5 % Platelet Count 128 L 130-400 10^3/uL Mean Platelet Volume 10.1 9.0-12.2 fL Immature Granulocyte % (Auto) 1 % Neutrophils (%) (Auto) 80 H 42-75 % Lymphocytes (%) (Auto) 7 L 12-44 % Monocytes (%) (Auto) 13 H 0-12 % Eosinophils (%) (Auto) 0 0-10 % Basophils (%) (Auto) 0 0-10 % Neutrophils # (Auto) 8.5 H 1.8-7.8 10^3/uL Lymphocytes # (Auto) 0.7 L 1.0-4.0 10^3/uL Monocytes # (Auto) 1.4 H 0.0-1.0 10^3/uL Eosinophils # (Auto) 0.0 0.0-0.3 10^3/uL Basophils # (Auto) 0.0 0.0-0.1 10^3/uL Immature Granulocyte # (Auto) 0.1 0.0-0.1 10^3/uL Neutrophils % (Manual) 84 % Lymphocytes % (Manual) 5 % Monocytes % (Manual) 11 % Percent Immature Platelet Fraction 3.0 0.0-7.6 % Blood Morphology Comment NORMAL Prothrombin Time 15.1 H 12.2-14.7 SEC INR Comment 1.1 0.8-1.4 Activated Partial Thromboplast Time 42 H 24-35 SEC Sodium Level 134 L 135-145 MMOL/L Potassium Level 3.9 3.6-5.0 MMOL/L Chloride Level 104 98-107 MMOL/L Carbon Dioxide Level 18 L 21-32 MMOL/L Anion Gap 12 5-14 MMOL/L Blood Urea Nitrogen 40 H 7-18 MG/DL Creatinine 1.49 H 0.60-1.30 MG/DL Estimat Glomerular Filtration Rate 50 BUN/Creatinine Ratio 27 Glucose Level 109 H 70-105 MG/DL Lactic Acid Level 0.67 0.50-2.00 MMOL/L Calcium Level 9.0 8.5-10.1 MG/DL Corrected Calcium 9.2 8.5-10.1 MG/DL Total Bilirubin 1.4 H 0.1-1.0 MG/DL Aspartate Amino Transf (AST/SGOT) 28 5-34 U/L Alanine Aminotransferase (ALT/SGPT) 25 0-55 U/L Alkaline Phosphatase 52 40-136 U/L Total Protein 6.9 6.4-8.2 GM/DL Albumin 3.7 3.2-4.5 GM/DL My Orders Orders - SHANNON HERNANDEZ Cbc With Automated Diff (05/05/22 10:34) Comprehensive Metabolic Panel (05/05/22 10:34) Blood Culture (05/05/22 10:34) Urinalysis (05/05/22 10:34) Urine Culture (05/05/22 10:34) Protime With Inr (05/05/22 10:34) Partial Thromboplastin Time (05/05/22 10:34) Chest 1 View, Ap/Pa Only (05/05/22 10:34) Ed Iv/Invasive Line Start (05/05/22 10:34) Ed Iv/Invasive Line Start (05/05/22 10:34) Vital Signs Adult Sepsis Patie Q15M (05/05/22 10:34) O2 (05/05/22 10:34) Remove Rings In Anticipation O (05/05/22 10:34) Lactic Acid Analyzer (05/05/22 10:34) Ns Iv 1000 Ml (Sodium Chloride 0.9%) (05/05/22 10:45) Cefepime Injection (Maxipime Injection) (05/05/22 10:45) Ed Iv/Invasive Line Start (05/05/22 10:34) Ns Iv 1000 Ml (Sodium Chloride 0.9%) (05/05/22 10:45) Manual Differential (05/05/22 10:43) Medications Given in ED Current Medications Medications Dose Ordered Sig/Alyssa Route Start Time Stop Time Status Last Admin Dose Admin Cefepime HCl 1000 mg/Sodium Chloride 50 ml @ 100 mls/hr ONCE ONCE IV 05/05/22 10:45 05/05/22 11:14 DC 05/05/22 11:43 100 MLS/HR Vital Signs/I&O 05/05/22 05/05/22 10:40 12:17 Temp 37.1 Pulse 80 78 Resp 18 18 B/P (MAP) 142/87 (105) 138/84 Pulse Ox 96 98 Capillary Refill : Less Than 3 Seconds Blood Pressure Mean: 105 Progress Note : Time: 12:03 Progress Note Well-appearing adult with a septic vital signs except for the history of fever. Urinalysis reveals UTI. No significant white count. Sepsis ruled out. Patient is okay with getting the couple liters of fluid and antibiotics and following up outpatient. We did called Dr. Roth per his request and gave report and he is okay with this plan. Diagnostic Imaging Diagonstic Imaging: Xray Plain Films/CT/US/NM/MRI: chest Comments [facility] [place], [place] NAME: MARLYS DUBON [facility] REC#: [id number] PT STATUS: REG ER : 1950 PHYSICIAN: SHANNON HERNANDEZ MD ADMIT DATE: 05/05/22/ER Signed Date of Exam:05/05/22 CHEST 1 VIEW, AP/PA ONLY INDICATION: Sepsis. COMPARISON: None available. FINDINGS: The lungs appear clear without focal airspace opacities or consolidation. There are no findings of an effusion. There is no evidence of a pneumothorax. Heart size and mediastinal contours appear appropriate. Pulmonary vascularity appears within normal limits. There is no acute or suspicious osseous abnormality demonstrated. IMPRESSION: No radiographic evidence of an acute cardiopulmonary process. Dictated by: Dictated on workstation # [id number] Dict: 05/05/22 1104 Trans: 05/05/22 110 [facility] [id number] Interpreted by: PORTILLO SHAH MD Electronically signed by: PORTILLO SHAH MD 05/05/22 110 Reviewed: Reviewed by Me Departure Impression Primary Impression: Catheter-associated urinary tract infection Qualified Codes: T83.511A - Infection and inflammatory reaction due to ind welling urethral catheter, initial encounter; N39.0 - Urinary tract infection, site not specified Disposition: 01 HOME, SELF-CARE Condition: Stable Departure-Patient Inst. Decision time for Depature: 12:03 Referrals: DONALDO ROTH DO (PCP/Family) Primary Care Physician Patient Instructions: Urinary Tract Infection, Adult (DC) Add. Discharge Instructions: Drink plenty of fluids, stay out of the heat for the next week. Cefdinir 1 capsule twice a day with food for 10 days. melt supervisor a bottle of probiotics and take 1 capsule twice a day but not within half an hour of the antibiotics. This will help replenish your gut bacteria that get wiped out by the antibiotics. This will also help reduce the side effects of antibiotics. Return to the ER if you are having significantly worsening fever, weakness, pain or other worrisome symptoms. All discharge instructions reviewed with patient and/or family. Voiced understanding. Scripts Cefdinir (Cefdinir) 300 Mg Capsule 300 MG PO BID for 10 Days, #20 CAP 0 Refills Prov: SHANNON HERNANDEZ 05/05/22 SHANNON HERNANDEZ May 05, 2022 12:05
[2022-05-05 12:17] VITALS: BP 138/84
== END 2022-05-05 12:17 | disposition home or self-care (01) ==
LOC: EDUNIT# 10:19 → ER 10:21
DX: T83.511A Infection and inflammatory reaction due to indwelling urethral catheter, initial encounter (principal); N39.0 Urinary tract infection, site not specified
CPT/HCPCS: 36415; 71045; 80053; 81000; 83605; 85007; 85027; 85610; 85730; 87040; 87077; 87088; 87186